=== PATIENT | female | born 1970 | race Caucasian/White ===

== ENCOUNTER 2020-10-26 10:33 | Emergency (ER) | payer OTHER ==
[~2020-10-26] VITALS: Ht 154.9 cm; Wt 119.3 kg
[2020-10-26 10:34] VITALS: BP 182/76
--- NOTE | 2020-10-26 10:45 | NUR ---
Note undone in EDM - 10/26/20 at 1242 by [email or web address] 50 Y/O FEMALE C/O RIGHT KNEE PAIN AND RIGHT CALVIN ABRASION, SWELLING, BRUISE S/P MECHANICAL SLIP AND FALL AT [employer] X1 HR AGO. PT STATES SHE SLIPPED OFF CURB. DENIES LOC OR HITTING HEAD. PT STATES SHE HAS NUMBESS TO RIGHT LOWER EXTREMETY BUT DENIES TINGLING, LIMITED ROM. PT RATES PAIN 10/10 THAT SHE DECRIBES STABBING. PT DENIES N/B/SOB. PT IS A/O X4 WITH EVEN AND UNLABORED RESPIRATIONS. PT LAYING IN BED WITH BED IN LOWEST POSITION, BRAKES LOCKED, X2 SIDERAILS UP FOR SAFETY. PT IN GOWN ATTACHED TO INSTRUMENTAL TEACHER. PMH: HTN, HYPOTHYROID, FIBROMYALGIA NKA
--- NOTE | 2020-10-26 10:45 | NUR ---
50 Y/O FEMALE C/O RIGHT KNEE PAIN AND RIGHT CALVIN ABRASION, SWELLING, BRUISE S/P MECHANICAL SLIP AND FALL AT [employer] X1 HR AGO. PT STATES SHE SLIPPED OFF CURB. DENIES LOC OR HITTING HEAD. PT STATES SHE HAS NUMBESS TO RIGHT LOWER EXTREMETY BUT DENIES TINGLING, LIMITED ROM. PT RATES PAIN 10/10 THAT SHE DECRIBES STABBING. PT DENIES N/B/SOB. PT IS A/O X4 WITH EVEN AND UNLABORED RESPIRATIONS. PT LAYING IN BED WITH BED IN LOWEST POSITION, BRAKES LOCKED, X2 SIDERAILS UP FOR SAFETY. PT IN GOWN ATTACHED TO TRAIN DISPATCHER. PMH: HTN, HYPOTHYROID, FIBROMYALGIA ALLERGIES:LISINOPRIL
--- NOTE | 2020-10-26 10:59 | NUR ---
Belia kwong in [facility] - 10/26/20 at [email or web address] LOPEZ AT BEDSIDE
--- NOTE | 2020-10-26 10:59 | NUR ---
ERMD evaluating pt at bedside.
[2020-10-26] MEDS ORDERED: KETOROLAC 60 MG/2 ML VIAL IM ONE (11:05)
--- NOTE | 2020-10-26 11:07 | NUR ---
PT TAKEN TO RAD VIA [facility]
--- NOTE | 2020-10-26 11:40 | NUR ---
PT BACK FROM CT AND CONNECTED TO MONITOR
--- NOTE | 2020-10-26 12:13 | NUR ---
DR LOPEZ AT BEDSIDE RE-EVALUATING PATIENT
[2020-10-26] MEDS ORDERED: ACET-9527 PO (12:17)
[2020-10-26] MEDS ORDERED: NAPR-54 PO (12:17)
--- NOTE | 2020-10-26 12:54 | NUR ---
PATIENT TAKEN TO CT VIA S[facility]
[2020-10-26] MEDS ORDERED: HYDROcodone/APAP 5/325 MG 1 TAB TAB PO ONE (13:15)
--- NOTE | 2020-10-26 13:21 | NUR ---
PT BACK FROM CT AND CONNECTED TO MONITOR
--- NOTE | 2020-10-26 14:20 | NUR ---
Patient provided with crutches that were adjusted to her appropriate height. Patient unable to bear weight and return demonstration, verbalized understanding of proper use.
[2020-10-26 15:00] VITALS: BP 182/76
--- NOTE | 2020-10-26 15:02 | NUR ---
Patient discharged with v/s stable. Written and verbal after care instructions given and explained. Patient alert, oriented and verbalized understanding of instructions. Wheel Chair Assisted with to car. All questions addressed prior to discharge. ID band removed. Patient advised to follow up with PMD. Rx of HYDROCODONE/ACETAMINOPHEN 5/325MG AND NAPROXEN given. Patient educated on indication of medication including possible reaction and side effects. Opportunity to ask questions provided and answered.
== END 2020-10-26 15:05 | disposition home or self-care (01) ==
LOC: MED 10:33
DX: S73.101A Unspecified sprain of right hip, initial encounter (principal); S80.11XA Contusion of right lower leg, initial encounter; I10 Essential (primary) hypertension; E03.9 Hypothyroidism, unspecified; Z88.8 Allergy status to other drugs, medicaments and biological substances; Z98.890 Other specified postprocedural states; Z79.899 Other long term (current) drug therapy; W19.XXXA Unspecified fall, initial encounter; Y93.89 Activity, other specified; Y92.89 Other specified places as the place of occurrence of the external cause; Y99.8 Other external cause status
CPT/HCPCS: 72131; 72192; 73502; 73552; 73590; 90471; 90715; 96372; 99285; J1885